=== PATIENT | female | born 1980 | race American Indian/Alaskan Native ===

== ENCOUNTER 2017-12-27 06:40 | Emergency (ER) | payer MEDICAID, OTHER ==
--- NOTE | 2017-12-27 08:41 | Emergency Department Report ---
ED Lower Extremity HPI - General Chief Complaint: Extremity Injury, Lower Stated Complaint: LEFT LEG PAIN Time Seen by Provider: 12/27/17 07:41 Source: patient Mode of arrival: Ambulatory Limitations: No Limitations - History of Present Illness Initial Comments: This is a 37-year-old -[place] female presents with left leg pain and bruising from a fall 3-4 days ago. Patient reports falling down outside stairs of home. A couple hours later she had difficulty applying pressure to left leg while ambulating and she noticed a large bruise to mid anterior thigh. She has been taking Goody powders and mothers hydrocodone with no improvement of pain. Initially when it happened she was applying ice to area to decrease swelling. Patient reports pain as 10 out of 10 with movement. States it is hard to walk without feeling like her leg is going to buckle. Reports bruising has improved but pain is getting worse. She is not sure if delete twisted but pain is worse in the medial side of left knee. LMP 11/19/17. Complaint: knee injury -: days(s) Injury: Thigh: Left (brusing), Knee: Left (pain with ROM) Type of Injury: unknown (fell downstairs at home) Place: home Severity: moderate Severity scale (0 -10): 7 Improves With: immobilization Worsens With: weight bearing, movement, palpation Context: fall Associated Symptoms: able to partially bear weight, ambulatory Treatments Prior to Arrival: cold therapy, NSAIDS - Related Data Previous Rx's Medication Instructions Recorded Last Taken Type Ibuprofen 800 mg PO Q6H PRN #20 tablet 12/27/17 Unknown Rx Allergies Allergy/AdvReac Type Severity Reaction Status Date / Time No Known Allergies Allergy Unverified 12/27/17 07:12 ED Review of Systems ROS: Stated complaint: LEFT LEG PAIN Other details as noted in HPI Constitutional: denies: chills, fever Respiratory: denies: cough, shortness of breath, wheezing Cardiovascular: denies: chest pain, palpitations Gastrointestinal: denies: abdominal pain, nausea, diarrhea Musculoskeletal: arthralgia (left knee pain). denies: back pain, joint swelling Skin: lesions (bruises and some right middle thigh). denies: rash ED Past Medical Hx - Past Medical History Previous Medical History?: No - Surgical History Past Surgical History?: No - Social History Smoking Status: Current Every Day Smoker Substance Use Type: None - Medications Home Medications: Home Medications Medication Instructions Recorded Confirmed Last Taken Type Ibuprofen 800 mg PO Q6H PRN #20 tablet 12/27/17 Unknown Rx ED Physical Exam - General Limitations: No Limitations General appearance: alert, in no apparent distress - Respiratory Respiratory exam: Present: normal lung sounds bilaterally. Absent: respiratory distress - Cardiovascular Cardiovascular Exam: Present: regular rate, normal rhythm, normal heart sounds. Absent: systolic murmur, diastolic murmur, rubs, gallop - GI/Abdominal GI/Abdominal exam: Present: soft, normal bowel sounds. Absent: organomegaly, mass - Extremities Exam Extremities exam: Present: normal inspection, full ROM. Absent: normal capillary refill, pedal edema, joint swelling, calf tenderness - Expanded Lower Extremity Exam Left Hip exam: Present: normal inspection, full ROM Upper Leg exam: Present: normal inspection, full ROM Knee exam: Present: full ROM, tenderness (lateral side), pain w/ pronation/ supination, full knee extension. Absent: swelling (lateral side), abrasion, posterior draw sign Lower Leg exam: Present: normal inspection, full ROM Ankle exam: Present: normal inspection, full ROM Foot/Toe exam: Present: normal inspection, full ROM Neuro vascular tendon exam: Present: no vascular compromise Gait: Positive: observed and limited by pain - Neurological Exam Neurological exam: Present: alert, oriented X3, abnormal gait (partial weightbearing to left lower extremity) - Psychiatric Psychiatric exam: Present: normal affect, normal mood - Skin Skin exam: Present: warm, dry, intact, normal color, ecchymosis (10 cm to the left anterior medial thigh, blanchable, no surrounding cellulitis and swelling) . Absent: rash ED Course Vital Signs 12/27/17 12/27/17 12/27/17 06:42 07:12 08:45 Temperature 98.7 F 98.7 F Pulse Rate 71 70 60 Respiratory 16 18 Rate Blood Pressure 115/81 115/81 107/49 O2 Sat by Pulse 100 100 100 Oximetry 12/27/17 10:39 Temperature Pulse Rate Respiratory 18 Rate Blood Pressure O2 Sat by Pulse Oximetry ED Lower Extremity MDM - Medical Decision Making This is a 37-year-old female with left knee pain and abrasions for 3 days s/p falling downstairs at home. Patient was examined by me. Given norco 7.5 mg po once in ER. X-ray of the left knee and femur obtained and read by radiologist. Received verbal report from radiologist of normal x-ray scans of femur and knee. No acute findings. Physical findings susceptible of muscle strain and abrasion. Patient informed of results. Knee immobilizer applied to left knee. Start ibuprofen for pain and monitor wound for improvement. Plan discussed with patient to discharge home and treat outpatient. Patient discharged home in stable condition. Follow up with PCP in 2-3 days. Critical care attestation.: If time is entered above; I have spent that time in minutes in the direct care of this critically ill patient, excluding procedure time. ED Disposition Clinical Impression: Abrasion Strain of left knee Qualifiers: Encounter type: initial encounter Qualified Code(s): S86.912A - Strain of unspecified muscle(s) and tendon(s) at lower leg level, left leg, initial encounter Disposition: TO HOME OR SELFCARE Is pt being admited?: No Does the pt Need Aspirin: No Condition: Stable Instructions: Abrasion (ED), Knee Pain (ED) Additional Instructions: Rest Use ice or heat on affected area for 20 minutes and off for 2 hours. Take pain medication as needed for pain. Follow up with Primary Care Provider in 2-3 days. Prescriptions: Ibuprofen 800 mg PO Q6H PRN #20 tablet PRN Reason: Pain Referrals: [facility] [Outside] - 3-5 Days [facility] [Outside] - 3-5 Days [facility] [Outside] - 3-5 Days Forms: Work/School Release Form(ED) Time of Disposition: 12:17 Print Language: AZERI
[2017-12-27] MEDS ORDERED: NORCO 5/325 PO ONE (10:20)
[2017-12-27 12:33] VITALS: BP 128/76
--- NOTE | 2017-12-31 12:56 | XRay Report ---
LEFT KNEE, 3 views: History: Left knee pain. The bony architecture is intact without evidence of fracture or dislocation. No significant soft tissue abnormality is seen. IMPRESSION: Normal left knee.
--- NOTE | 2017-12-31 12:56 | XRay Report ---
LEFT FEMUR: HISTORY: pain AP and lateral views of the femur demonstrate normal mineralization and contours for this patient's age. No destructive changes are noted and the adjacent soft tissues are normal. IMPRESSION: Normal left femur.
== END 2017-12-27 12:33 | disposition home or self-care (01) ==
LOC: ED 06:40
DX: S86.912A Strain of unspecified muscle(s) and tendon(s) at lower leg level, left leg, initial encounter (principal); F17.200 Nicotine dependence, unspecified, uncomplicated; W18.30XA Fall on same level, unspecified, initial encounter; Y93.89 Activity, other specified; Y99.8 Other external cause status; Y92.099 Unspecified place in other non-institutional residence as the place of occurrence of the external cause